=== PATIENT | male | born 2000 | race Caucasian/White ===

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

== ENCOUNTER 2023-10-29 14:15 | Outpatient (CLI) | payer MEDICAID ==
--- NOTE | 2023-10-29 16:35 | XRAY Report ---
PROCEDURE: Cervical Spine 2-3V INDICATIONS: NECK PAIN TECHNIQUE: 3 view(s) of the cervical spine were acquired. COMPARISON: None. FINDINGS: Bones: No fractures or dislocations to the C7 level. The lateral masses of C1 appear intact on the odontoid view. No suspicious bony lesions. Very mild disc height loss at C4-5, C5-6. Soft tissues: No prevertebral soft tissue swelling. IMPRESSION: No displaced fracture or traumatic subluxation. Early, very mild degenerative disc disease at C4-5 and C5-6. Reviewed by: Bobby Corona MD on 10/29/2023 4:22 PM PDT Approved by: Bobby Corona MD on 10/29/2023 4:22 PM PDT Station ID: [id number]
== END 2023-10-29 14:30 | disposition home or self-care (01) ==
LOC: DI.N 14:15
PROVIDERS: ATTEND Family Medicine
DX: M50.321 Other cervical disc degeneration at C4-C5 level (principal)